=== PATIENT | female | born 1965 | race Caucasian/White ===

== ENCOUNTER 2018-09-07 12:02 | Emergency (ER) | payer OTHER ==
--- NOTE | 2018-09-07 12:21 | NUR ---
CONTACT WITH PT, 53 YR OLD FEMALE HERE WITH C/O "SEVERE HEADACHE" BEGAN ON TUESDAY, SOUND SENSITIVITY, DIZZINESS, INABILITY TO CONCENTRATE.
[2018-09-07] MEDS ORDERED: SODIUM CHLORIDE 0.9% 1,000ML IVBOLUS ONE (13:00)
[2018-09-07] MEDS ORDERED: METOCLOPRAMIDE 5 MG/ML, 2ML IVPush ONE (13:00)
[2018-09-07] MEDS ORDERED: DIPHENHYDRAMINE 50 MG/ML, 1ML IVPush ONE (13:00)
[2018-09-07 13:08] LABS: BASOPHILS # (AUTO) 0.03 x10^3/uL (0-0.1); BASOPHILS % (AUTO) 1 % (0-1); EOSINOPHILS # (AUTO) 0.06 x10^3/uL (0-0.4); EOSINOPHILS % (AUTO) 1 % (1-7); LYMPHOCYTES % (AUTO) 25 % (22-44); MD NO; MEAN CORPUSCULAR HEMOGLOBIN 31.2 pg (27.0-34.8); MEAN CORPUSCULAR HGB CONC 33.8 g/dL (32.4-35.8); MEAN CORPUSCULAR VOLUME 92.1 fL (80-100); MEAN PLATELET VOLUME 6.3 fL (7.4-10.4); MONOCYTES # (AUTO) 0.33 x10^3/uL (0.2-0.8); MONOCYTES % (AUTO) 6 % (2-9); NEUTROPHILS # (AUTO) 3.91 x10^3/uL (1.8-6.8); NEUTROPHILS % (AUTO) 68 % (42-75); PLATELET COUNT 316 x10^3/uL (130-400); RED BLOOD COUNT 4.42 x10^6/uL (3.82-5.3); RED CELL DISTRIBUTION WIDTH 13.1 % (9.6-15.2)
[2018-09-07 13:12] LABS: ANION GAP 6 mmol/L (5-15); CALCIUM 9.1 mg/dL (8.5-10.1); CHLORIDE 107 mmol/L (98-107); CREATININE 0.93 mg/dL (0.55-1.02)
[2018-09-07] MEDS ORDERED: METOCLOPRAMIDE 5 MG/ML, 2ML ONE (13:24)
[2018-09-07] MEDS ORDERED: DIPHENHYDRAMINE 50 MG/ML, 1ML ONE (13:24)
[2018-09-07 13:32] VITALS: BP 127/81
[2018-09-07 13:44] LABS: HCT (SEDRATE) 40.7 % (34.6-47.8)
--- NOTE | 2018-09-07 13:49 | NUR ---
PT TO CT VIA TI
--- NOTE | 2018-09-07 14:15 | NUR ---
PT WITH PAIN DECREASED TO 4/10. IV NS INFUSING WITHOUT REDNESS/SWELLING. ADDITIONAL PAIN MEDICAITON TO BE ADMINISTERED. NO OTHER NEEDS EXPRESSED AT THIS TIME.
[2018-09-07] MEDS ORDERED: KETOROLAC 30 MG/1 ML ONE (14:17)
[2018-09-07] MEDS ORDERED: KETOROLAC 60 MG/2 ML IVPush ONE (14:30)
--- NOTE | 2018-09-07 15:14 | NUR ---
PT CURRENTLY DENIES PAIN. STATES, "HE SAID I COULD GO HOME" PT AND PTS AWARE OF WAITING FOR DISCHARGE PAPERS. NO NEEDS EXPRESSED AT THIS TIME.
--- NOTE | 2018-09-07 15:34 | NUR ---
IV DC'D WITH CANNULA INTACT. REVIEWED DC INSTRUCTIONS WITH PT, UNDERSTANDING VERBALIZED. PT LEFT AMB, GAIT STEADY WITH SPOUSE.
== END 2018-09-07 15:36 | disposition home or self-care (01) ==
LOC: ED 13:30
DX: R51 Headache (principal); J45.909 Unspecified asthma, uncomplicated; M19.90 Unspecified osteoarthritis, unspecified site
CPT/HCPCS: 36415; 70450; 80048; 85025; 85651; 96374; 96375; 99284; J1200; J1885; J2765; J7030

== ENCOUNTER 2020-08-07 11:29 | Outpatient (CLI) | payer OTHER ==
[2020-08-07] MEDS ORDERED: OMNIPAQUE 350 MG/ML, 75ML BOTTLE ONE (12:35)
== END 2020-08-07 23:59 | disposition home or self-care (01) ==
LOC: RAD 11:29
PROVIDERS: ATTEND Family Medicine
DX: I99.9 Unspecified disorder of circulatory system (principal)
CPT/HCPCS: 70498; Q9967